=== PATIENT | female | born 1990 | race Caucasian/White ===

== ENCOUNTER 2017-11-23 16:58 | Emergency (ER) | payer MEDICAID ==
[~2017-11-23] VITALS: Ht 162.6 cm; Wt 68.5 kg
[2017-11-23] MEDS ORDERED: HYDROcodone/APAP 5/325 TABLET PO ONE (18:30)
[2017-11-23] MEDS ORDERED: DIAZEPAM 5 MG TABLET PO ONE (18:30)
[2017-11-23] MEDS ORDERED: DIAZEPAM 5 MG TABLET ONE (18:54)
[2017-11-23] MEDS ORDERED: HYDROcodone/APAP 5/325 TABLET ONE (18:54)
[2017-11-23 19:03] LABS: HCG UR SG 1.023 (1.003-1.030); MICROSCOPIC AUTO
[2017-11-23 19:05] LABS: CULTURE INDICATED? YES
[2017-11-23 19:52] VITALS: BP 109/69
== END 2017-11-23 19:55 | disposition home or self-care (01) ==
LOC: ED 19:49
DX: S39.012A Strain of muscle, fascia and tendon of lower back, initial encounter (principal); M54.42 Lumbago with sciatica, left side; M54.41 Lumbago with sciatica, right side; M54.16 Radiculopathy, lumbar region; M62.830 Muscle spasm of back; X58.XXXA Exposure to other specified factors, initial encounter; Y93.89 Activity, other specified; Y99.8 Other external cause status; Y92.89 Other specified places as the place of occurrence of the external cause
CPT/HCPCS: 72110; 81001; 81025; 87086; 99285

== ENCOUNTER 2018-09-18 09:44 | Emergency (ER) | payer BC, MEDICAID ==
[~2018-09-18] VITALS: Ht 162.6 cm; Wt 59.8 kg
[2018-09-18] MEDS ORDERED: LORazepam 1MG TABLET ONE (10:07)
[2018-09-18] MEDS ORDERED: LORazepam 1MG TABLET PO ONE (10:30)
[2018-09-18] MEDS ORDERED: ALBUTEROL/IPRATROPIUM 2.5MG/0.5MG, 3 ML ONE (10:40)
[2018-09-18 10:53] LABS: BASOPHILS # (AUTO) 0.04 x10^3/uL (0-0.1); BASOPHILS % (AUTO) 0 % (0-1); EOSINOPHILS # (AUTO) 0.21 x10^3/uL (0-0.4); EOSINOPHILS % (AUTO) 2 % (1-7); LYMPHOCYTES % (AUTO) 21 % (22-44); MD NO; MEAN CORPUSCULAR HEMOGLOBIN 30.6 pg (27.0-34.8); MEAN CORPUSCULAR HGB CONC 33.2 g/dL (32.4-35.8); MEAN CORPUSCULAR VOLUME 92.1 fL (80-100); MEAN PLATELET VOLUME 8.9 fL (7.4-10.4); MONOCYTES # (AUTO) 0.47 x10^3/uL (0.2-0.8); MONOCYTES % (AUTO) 4 % (2-9); NEUTROPHILS # (AUTO) 9.52 x10^3/uL (1.8-6.8); NEUTROPHILS % (AUTO) 74 % (42-75); PLATELET COUNT 304 x10^3/uL (130-400); RED BLOOD COUNT 4.27 x10^6/uL (3.82-5.3); RED CELL DISTRIBUTION WIDTH 14.4 % (9.6-15.2)
[2018-09-18] MEDS ORDERED: ALBUTEROL/IPRATROPIUM 2.5MG/0.5MG, 3 ML NPPB ONE (11:00)
[2018-09-18 11:05] LABS: ALBUMIN 3.8 g/dL (3.4-5.0); ANION GAP 6 mmol/L (5-15); CALCIUM 8.7 mg/dL (8.5-10.1); CHLORIDE 110 mmol/L (98-107); CREATININE 0.91 mg/dL (0.55-1.02)
[2018-09-18 11:15] VITALS: BP 109/54
[2018-09-18] MEDS ORDERED: ASPI-691 PO (11:19)
--- NOTE | 2018-09-18 11:19 | NUR ---
PT A&OX4, RESP EVEN & UNLABORED, SPEECH CLEAR, SKIN WNL. STATES SHE USED AN INHALER TACTICAL AIR CONTROL PARTY THAT HER FRIEND GAVE HER YEARS AGO - EXPIRATION DATE UNKOWN. STATES NO IMPROVEMENT IN SX AFTER 6 PUFFS. CURRENTLY REPORTS IMPROVEMENT IN SX POST-NEB TX.
== END 2018-09-18 11:31 | disposition home or self-care (01) ==
LOC: ED 10:28
DX: F41.1 Generalized anxiety disorder (principal); R06.00 Dyspnea, unspecified; J45.909 Unspecified asthma, uncomplicated
CPT/HCPCS: 36415; 71046; 80048; 82040; 84703; 85025; 85379; 93005; 94640; 99284; J7620